=== PATIENT | male | born 1995 | race Hispanic/Latino ===

== ENCOUNTER 2017-09-30 18:27 | Emergency (ER) | payer SELFPAY ==
[2017-09-30] MEDS ORDERED: hydrOXYzine 25 MG TAB ONE (18:54)
== END 2017-09-30 19:03 | disposition home or self-care (01) ==
LOC: ERS 18:27
DX: L25.9 Unspecified contact dermatitis, unspecified cause (principal); F17.210 Nicotine dependence, cigarettes, uncomplicated; Z71.6 Tobacco abuse counseling
CPT/HCPCS: 99406